=== PATIENT | female | born 1975 | race African-American/Black ===

== ENCOUNTER 2017-01-13 17:19 | Emergency (ER) | payer SELFPAY ==
[~2017-01-13] VITALS: Ht 165.1 cm; Wt 70.3 kg
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
--- NOTE | 2017-01-13 17:34 | NUR ---
DR HUNT AT BEDSIDE FOR EVAL.
--- NOTE | 2017-01-13 17:37 | NUR ---
RADIOLOGY AT BEDSIDE FOR CHEST XRAY.
[2017-01-13 19:12] VITALS: BP 115/75
--- NOTE | 2017-01-13 19:12 | NUR ---
Patient discharged to home in stable condition. Written and verbal after care instructions given. Patient verbalizes understanding of instruction.
== END 2017-01-13 19:13 | disposition home or self-care (01) ==
LOC: ER 17:21
DX: S60.212A Contusion of left wrist, initial encounter (principal); R06.02 Shortness of breath; Z90.710 Acquired absence of both cervix and uterus; Z98.890 Other specified postprocedural states; V43.52XA Car driver injured in collision with other type car in traffic accident, initial encounter; Y93.89 Activity, other specified; Y92.89 Other specified places as the place of occurrence of the external cause; Y99.9 Unspecified external cause status
CPT/HCPCS: 71010-TC; A4606; Z7610